=== PATIENT | female | born 1990 | race Caucasian/White ===

== ENCOUNTER 2018-02-09 11:00 | Outpatient (CLI) | payer OTHER, SELFPAY ==
--- NOTE | 2018-02-09 11:03 | DI.US_ITS ---
Many abnormalities cannot be diagnosed. A normal exam does not exclude a congenital anomaly. Radiology No. LMP: Exam Date: [facility] wks days on EDC ([facility]) Confirmed: HISTORY: LOCATE IUD, ESTIMATED GESTATIONAL AGE, EVALUATE FOR THREATENED SAB, BLEEDING, 026.30 ---- PREDICTED GESTATIONAL AGE NUMBER weeks with a range of week to weeks. 1 e Determined by___1STUS___LMP___HISTORY Info. pertaining to fetus # PLACENTA PRESENTATION Grade 0 Cephalic__X_ Anterior___Posterior_X Breech____ Right Left Transverse(head right___ Fundal___Low-lying___Previa___ Transverse(head left___ Varying BIOMETRY AMNIOTIC FLUID BPD: 26 mm 14.4 weeks Normal HC: 105 mm 15.0 weeks AC: 94 mm 15.4 weeks FL: 17 mm 15.1 weeks AMNIOTIC FLUID INDEX >26 WK CRL: mm weeks Cisterna Magna: mm CI: RUQ: LUQ Cerebellum: cm EFW: grams Percentile RLQ: LLQ Total: cms Composite AGE= 15.1 wks EDC by US____08/02/18 BIOPHYSICAL PROFILE ANATOMY IDENTIFIED SCORE 0/2 Heart: 4-Chamber___Rate:BPM__147___ LVOT: RVOT: Amniotic Fluid(>2cms)____ Stomach:__X Kidneys: Respirations (>30 secs) Bladder: Post. Fossa: Body Flex/Extension 3 vessel cord: Ventricles: cord insertion: Lips:____ Extremity Flex/Extension spinal morphology: Nose: Total Score= Palate: NS=not seen The findings were discussed with Dr Lexus Kirkpatrick on the date of the examination.
== END 2018-02-09 11:20 ==
LOC: LBO 11:00 → DI 11:01
PROVIDERS: PCP Nurse Practitioner Family; Visit Provider Obstetrics & Gynecology Gynecology
DX: O26.31 Retained intrauterine contraceptive device in pregnancy, first trimester (principal); N83.01 Follicular cyst of right ovary
CPT/HCPCS: 76801

== ENCOUNTER 2018-02-10 12:12 | Outpatient (CLI) | payer OTHER, SELFPAY ==
[2018-02-10 13:06] LABS: Abs Immature Grans 0.03 k/cumm (0.0-0.09); Absolute Basophil Count 0.02 k/cumm (0.0-0.2); Absolute Lymphocyte Count 1.19 k/cumm (1.2-3.4); Absolute Monocyte Count 0.43 k/cumm (0.11-0.7); Absolute Neutrophil Count 6.88 k/cumm (1.2-6.7); Basophils % 0.2; Eosinophils % 1.2; HCT 32.7 % (36.0-46.0); HGB 11.2 g/dL (12.0-15.5); Immature Grans % 0.3; Lymphocytes % 13.8; Mean Corp. HGB Concentration 34.3 g/dL (32.0-36.0); Mean Corpuscular Hemoglobin 30.4 pg (27.0-33.0); Mean Corpuscular Volume 88.9 fL (80-95); Mean Platelet Volume 10.1 fL (8.0-11.0); Neutrophils % 79.5; Platelet Count 270 x1000/uL (130-400); RBC 3.68 m/cumm (4.00-5.20); White Blood Cell Count 8.65 k/cumm (4.4-10.8)
[2018-02-10 13:59] LABS: TSH (W/Ref FT4) 2.38 uIU/mL (0.358-3.74)
[2018-02-11 11:25] LABS: HIV-1/2 Ag & Ab Screen Negative (NEGAT)
[2018-02-11 11:26] LABS: Hepatitis B Surface Ag Negative (NEGAT); Hepatitis C Ab w Rflx HCV PCR Negative (NEGAT)
[2018-02-11 12:30] LABS: Rubella IgG Ab (UVM) Positive; Syphilis Serology (RPR) Negative (Negative)
[2018-02-11 13:25] LABS: Varicella IgG Antibody Positive
== END 2018-02-10 12:32 ==
PROVIDERS: PCP Nurse Practitioner Family; Visit Provider Obstetrics & Gynecology Gynecology
DX: O20.0 Threatened abortion (principal)
CPT/HCPCS: 36415; 80055; 86850; 86900; 86901; 90384